=== PATIENT | female | born 1995 | race Caucasian/White ===

== ENCOUNTER 2020-12-07 04:15 | Inpatient (IN) | payer OTHER ==
[2020-12-07 06:09] LABS: BASO % 0.2 % (0-2.0); EOS % 0.3 % (0-4.5); HEMATOCRIT 35.7 % (32.4-45.2); HEMOGLOBIN 12.4 GM/dL (10.7-15.3); LYMPH % 15.7 % (8-40); MCH 30.5 pg (25.7-33.7); MCHC 34.8 g/dl (32.0-36.0); MEAN CELL VOLUME 87.7 fl (80-96); MEAN PLT VOLUME 9.3 fl (7.5-11.1); MONO % 5.5 % (3.8-10.2); NEUT % 78.3 % (42.8-82.8); PLATELET COUNT 278 K/MM3 (134-434); RBC 4.07 M/mm3 (3.60-5.2); RDW 12.8 % (11.6-15.6); WHITE BLOOD COUNT 12.8 K/mm3 (4.0-10.0)
[2020-12-07 06:19] VITALS: BMI 38.5
[2020-12-07 06:20] LABS: INR 0.97 (0.83-1.09); PROTHROMBIN TIME (PATIENT) 11.7 SEC (9.7-13.0)
[2020-12-07 06:22] LABS: ACTIVATED PTT 28.5 SECONDS (25.2-36.5)
[2020-12-07 06:30] LABS: BLOOD UREA NITROGEN 9.5 mg/dL (7-18)
[2020-12-07 06:33] LABS: CREATININE 0.5 mg/dL (0.55-1.3)
[2020-12-07 06:59] LABS: SYPHILIS W/ RPR CONF NON-REACTIVE (NONREACTIVE)
[2020-12-07] MEDS ORDERED: OXYTOCIN 30 UNITS in 0.9% NS 30 UNIT/500 ML INFUS.BAG IVPB SCH (07:15)
[2020-12-07 07:28] LABS: HIV INTERPRETATION NEGATIVE (NEGATIVE)
[2020-12-07] MEDS: DEXTROSE 5%-LACTATED RINGERS 1,000 ML IV SCH (08:20)
[2020-12-07] MEDS ORDERED: OXYTOCIN 30 UNITS in 0.9% NS 30 UNIT/500 ML INFUS.BAG IVPB ONE (08:22)
[2020-12-07] MEDS ORDERED: PCA PUMP NR ONE (09:42)
[2020-12-07] MEDS ORDERED: FENTANYL/BUPIVACAINE/NS/PF - PCEA - 50 ML DISP.SYRIN EP ONE (09:43)
[2020-12-07] MEDS ORDERED: NALOXONE HCL 0.4 MG/ML VIAL IVPUSH PRN (10:58)
[2020-12-07] MEDS ORDERED: FENTANYL/BUPIVACAINE/NS/PF - PCEA - 50 ML DISP.SYRIN EP SCH (11:00)
[2020-12-07] MEDS ORDERED: OXYTOCIN 20 UNITS in 0.9% NS 20 UNIT/1,000 ML INFUS.BAG IV ONE (13:36)
[2020-12-07] MEDS ORDERED: LIDOCAINE HCL 1% PRESERVATIVE FREE - 30ML VIAL ONE (13:36)
[2020-12-07] MEDS ORDERED: METHYLERGONOVINE MALEATE 0.2 MG/1 ML AMP IM PRN (14:14)
[2020-12-07] MEDS ORDERED: BENZOCAINE 28 GM HEMORRHOIDAL OINTMENT TP PRN (14:14)
[2020-12-07] MEDS ORDERED: BISACODYL 10 MG SUPP.RECT RC PRN (14:14)
[2020-12-07] MEDS ORDERED: OXYTOCIN 20 UNITS in 0.9% NS 20 UNIT/1,000 ML INFUS.BAG IV SCH (14:15)
[2020-12-07 14:57] LABS: CORD HCO3 21.7 mmHg (20-29); CORD PCO2 78.6 mmHg (30-78); CORD pH 7.059 (7.14-7.44)
[2020-12-07 15:00] LABS: CORD BASE EXCESS -11.7 mmol/L (0-2); CORD HCO3 20.9 mmHg (20-29); CORD PCO2 78.1 mmHg (30-78); CORD pH 7.045 (7.14-7.44)
[2020-12-07] MEDS ORDERED: IBUPROFEN 600 MG TABLET (FP) PO ONE (15:35)
[2020-12-07] MEDS ORDERED: ACETAMINOPHEN 325 MG TABLET (FP) ONE (15:35)
[2020-12-07] MEDS: ACETAMINOPHEN 325 MG TABLET (FP) PO PRN ×2 (15:41→19:55)
[2020-12-07] MEDS: IBUPROFEN 600 MG TABLET (FP) PO PRN ×2 (15:41→20:06)
[2020-12-07] MEDS: BENZOCAINE 20% 57 GM BOTTLE TP PRN (20:07)
[2020-12-07] MEDS: WITCH HAZEL 50% (TUCKS) 40 PAD/JAR PAD TP PRN (20:07)
[2020-12-07] MEDS: FERROUS SO4 325 MG TABLET (FP) PO SCH (21:17)
[2020-12-08] MEDS: IBUPROFEN 600 MG TABLET (FP) PO PRN ×3 (05:06→21:28)
[2020-12-08] MEDS: ACETAMINOPHEN 325 MG TABLET (FP) PO PRN ×4 (05:07→21:28)
[2020-12-08 08:33] LABS: BASO % 0.3 % (0-2.0); EOS % 0.2 % (0-4.5); HEMATOCRIT 31.5 % (32.4-45.2); HEMOGLOBIN 10.7 GM/dL (10.7-15.3); LYMPH % 15.7 % (8-40); MCHC 33.9 g/dl (32.0-36.0); MEAN CELL VOLUME 88.4 fl (80-96); MEAN PLT VOLUME 9.1 fl (7.5-11.1); MONO % 6.5 % (3.8-10.2); NEUT % 77.3 % (42.8-82.8); PLATELET COUNT 256 K/MM3 (134-434); RBC 3.56 M/mm3 (3.60-5.2); RDW 13.3 % (11.6-15.6); WHITE BLOOD COUNT 12.9 K/mm3 (4.0-10.0)
[2020-12-08] MEDS: PRENATAL VITAMINS W/ FOLIC ACID TABLET (FP) PO SCH (10:21)
[2020-12-08] MEDS: FERROUS SO4 325 MG TABLET (FP) PO SCH ×2 (10:21→21:28)
[2020-12-08] MEDS: BENZOCAINE 20% 57 GM BOTTLE TP PRN (10:27)
[2020-12-08] MEDS: WITCH HAZEL 50% (TUCKS) 40 PAD/JAR PAD TP PRN (10:28)
[2020-12-08] MEDS ORDERED: SENNOSIDES/DOCUSATE COMBO (SENNA PLUS) TABLET (UD) PO PRN (22:00)
[2020-12-09] MEDS: DEXTROSE 5%-LACTATED RINGERS 1,000 ML IV SCH (07:54)
[2020-12-09] MEDS: ACETAMINOPHEN 325 MG TABLET (FP) PO PRN (08:08)
[2020-12-09] MEDS: IBUPROFEN 600 MG TABLET (FP) PO PRN (08:08)
[2020-12-09] MEDS: WITCH HAZEL 50% (TUCKS) 40 PAD/JAR PAD TP PRN (08:09)
[2020-12-09] MEDS: BENZOCAINE 20% 57 GM BOTTLE TP PRN (08:09)
[2020-12-09] MEDS: PRENATAL VITAMINS W/ FOLIC ACID TABLET (FP) PO SCH (10:04)
[2020-12-09] MEDS: FERROUS SO4 325 MG TABLET (FP) PO SCH (10:04)
[2020-12-09 15:07] VITALS: BP 101/64; PULSE 85; TEMP 98
== END 2020-12-09 14:25 | disposition home or self-care (01) | DRG 560 ==
LOC: JLDR 04:15 → J3W 16:30
PROVIDERS: ADMIT Obstetrics & Gynecology; ATTEND Obstetrics & Gynecology
PROC: 0W8NXZZ Division of Female Perineum, External Approach (ICD-10-PCS; principal; 2020-12-07)
PROC: 10E0XZZ Delivery of Products of Conception, External Approach (ICD-10-PCS; 2020-12-07)
DX: O99.214 Obesity complicating childbirth (principal); E66.9 Obesity, unspecified; Z3A.40 40 weeks gestation of pregnancy; Z37.0 Single live birth
CPT/HCPCS: 36415; 36600; 59409; 80048; 82803; 85025; 85610; 85730; 86780; 86850; 86900; 86901; 87389; C9803; U0003; U0005

== ENCOUNTER 2024-05-27 23:00 | Inpatient (IN) | payer OTHER ==
[2024-05-27] MEDS: ELECTROLYTE-148 SOLN 500 ML IV ONE (23:30)
[2024-05-27] MEDS ORDERED: METHYLERGONOVINE MALEATE 0.2 MG/1 ML AMP IM PRN (23:53)
[2024-05-28] LABS: BASO % 0.3 % (0-2.0); EOS % 0.6 % (0-4.5); HEMATOCRIT 34.3 % (32.4-45.2); HEMOGLOBIN 11.4 GM/dL (10.7-15.3); LYMPH % 23.1 % (8-40); MCH 30.4 pg (25.7-33.7); MCHC 33.2 g/dl (32.0-36.0); MEAN CELL VOLUME 91.3 fl (80-96); MEAN PLT VOLUME 9.4 fl (7.5-11.1); MONO % 7.1 % (3.8-10.2); NEUT % 68.9 % (42.8-82.8); PLATELET COUNT 227 10^3/uL (134-434); RBC 3.75 M/mm3 (3.60-5.2); RDW 13.7 % (11.6-15.6); WHITE BLOOD COUNT 11.1 K/mm3 (4.0-10.0)
[2024-05-28] MEDS: ELECTROLYTE-148 SOLN 1,000 ML IV SCH
[2024-05-28] MEDS: CITRIC ACID/SODIUM CITRATE 30 ML UNIT-DOSE CUP PO ONE (00:03)
[2024-05-28 00:32] VITALS: BMI 33.0
[2024-05-28 00:35] LABS: POTASSIUM 3.9 mmol/L (3.5-5.1)
[2024-05-28 00:37] LABS: CALCIUM 9.3 mg/dL (8.5-10.1)
[2024-05-28 00:38] LABS: BLOOD UREA NITROGEN 13.1 mg/dL (7-18)
[2024-05-28] MEDS ORDERED: morphine SULFATE/PF 1 MG/2 ML (2cc Syringe - QUVA) ONE (00:39)
[2024-05-28 00:41] LABS: CREATININE 0.4 mg/dL (0.55-1.3)
[2024-05-28 01:16] LABS: HIV INTERPRETATION NEGATIVE (NEGATIVE); INR 0.91 (0.83-1.09); PROTHROMBIN TIME (PATIENT) 10.5 SEC (9.7-13.0)
[2024-05-28 01:19] LABS: ACTIVATED PTT 24.2 SECONDS (25.2-36.5)
[2024-05-28] MEDS ORDERED: CEFAZOLIN 1 GM in DEXTROSE 5%-WATER - 50 ML IVPB SCH (02:00)
[2024-05-28 02:08] LABS: CORD HCO3 26.4 mmHg (20-29); CORD PCO2 54.7 mmHg (30-78); CORD pH 7.301 (7.14-7.44)
[2024-05-28] MEDS ORDERED: FENTANYL CITRATE/PF 50 MCG/ML VIAL ONE ×2 (02:18→02:21)
[2024-05-28 02:23] LABS: CORD HCO3 22.8 mmHg (20-29); CORD PCO2 43.5 mmHg (30-78); CORD pH 7.338 (7.14-7.44)
[2024-05-28] MEDS: OXYTOCIN 20 UNITS in 0.9% NS 20 UNIT/1,000 ML INFUS.BAG IV SCH (02:35)
[2024-05-28] MEDS ORDERED: OXYTOCIN 20 UNITS in 0.9% NS 20 UNIT/1,000 ML INFUS.BAG IV ONE (02:39)
[2024-05-28 08:16] LABS: HEMATOCRIT 32.3 % (32.4-45.2); HEMOGLOBIN 10.7 GM/dL (10.7-15.3); MCH 30.4 pg (25.7-33.7); MEAN CELL VOLUME 92.3 fl (80-96); MEAN PLT VOLUME 8.6 fl (7.5-11.1); PLATELET COUNT 217 10^3/uL (134-434); RDW 13.6 % (11.6-15.6); WHITE BLOOD COUNT 18.3 K/mm3 (4.0-10.0)
[2024-05-28] MEDS: CEFAZOLIN 1 GM in DEXTROSE 5%-WATER - 50 ML IVPB SCH (08:59)
[2024-05-28] MEDS: ONDANSETRON 4 MG/2 ML VIAL IVPUSH PRN (09:01)
[2024-05-28 09:07] LABS: ANISOCYTOSIS 1+; MACROCYTOSIS 0
[2024-05-28] MEDS: ENOXAPARIN NA (PORCINE) 40 MG/0.4 ML DISP.SYRIN SQ SCH (09:56)
[2024-05-28] MEDS ORDERED: oxyCODONE HCL 5 MG TABLET PO PRN (11:53)
[2024-05-28] MEDS: SIMETHICONE 80 MG TAB.CHEW (FP) PO PRN (12:46)
[2024-05-28] MEDS: IBUPROFEN 600 MG TABLET (FP) PO PRN (12:46)
[2024-05-28] MEDS: IBUPROFEN 800 MG/8 ML IJ IVPB PRN (21:57)
[2024-05-28] MEDS ORDERED: BISACODYL 10 MG SUPP.RECT RC PRN (23:53)
[2024-05-29] MEDS ORDERED: BISACODYL 10 MG SUPP.RECT PR PRN (13:26)
[2024-05-29] MEDS: ACETAMINOPHEN 325 MG TABLET (FP) PO PRN (15:17)
[2024-05-29 20:54] VITALS: TEMP 98.5
[2024-05-30 07:00] LABS: BASO % 0.3 % (0-2.0); EOS % 0.8 % (0-4.5); HEMOGLOBIN 9.8 GM/dL (10.7-15.3); LYMPH % 22.2 % (8-40); MCH 31.3 pg (25.7-33.7); MCHC 33.7 g/dl (32.0-36.0); MEAN CELL VOLUME 92.8 fl (80-96); MEAN PLT VOLUME 8.3 fl (7.5-11.1); MONO % 8.3 % (3.8-10.2); NEUT % 68.4 % (42.8-82.8); PLATELET COUNT 218 10^3/uL (134-434); RBC 3.12 M/mm3 (3.60-5.2); RDW 13.8 % (11.6-15.6); WHITE BLOOD COUNT 9.8 K/mm3 (4.0-10.0)
[2024-05-30 09:44] VITALS: BP 118/70; PULSE 58; RESP 17
[2024-05-30] MEDS: SENNOSIDES/DOCUSATE COMBO (SENNA PLUS) TABLET (UD) PO ONE (12:44)
== END 2024-05-30 14:40 | disposition home or self-care (01) | DRG 540 ==
LOC: JLDR 23:00 → J3W 05-28 05:15
PROVIDERS: ADMIT Obstetrics & Gynecology; ATTEND Obstetrics & Gynecology
PROC: 10D00Z1 Extraction of Products of Conception, Low, Open Approach (ICD-10-PCS; principal; 2024-05-28)
DX: O32.1XX0 Maternal care for breech presentation, not applicable or unspecified (principal); O99.013 Anemia complicating pregnancy, third trimester; Z3A.38 38 weeks gestation of pregnancy; Z37.0 Single live birth
CPT/HCPCS: 36415; 36600; 80048; 82803; 85025; 85610; 85730; 86780; 86850; 86900; 86901; 87389; 88307-TC